=== PATIENT | female | born 1970 | race Caucasian/White ===

== ENCOUNTER → 2017-06-25 | Outpatient (CLI) | payer BC, OTHER | LOC: FIMAGING 16:53 | PROVIDERS: ATTEND Family Medicine | DX: R10.2 Pelvic and perineal pain (principal); W19.XXXA Unspecified fall, initial encounter ==

== ENCOUNTER → 2017-07-28 | Outpatient (CLI) | payer BC, OTHER | LOC: FIMAGING 08:34 | PROVIDERS: ATTEND Family Medicine | DX: Z12.31 Encounter for screening mammogram for malignant neoplasm of breast (principal) | CPT/HCPCS: G0202 ==

== ENCOUNTER → 2017-08-10 | Outpatient (CLI) | payer BC, OTHER | LOC: FIMAGING 09:13 | PROVIDERS: ATTEND Family Medicine | DX: Z12.39 Encounter for other screening for malignant neoplasm of breast (principal); N63 Unspecified lump in breast | CPT/HCPCS: G0206 ==

== ENCOUNTER 2017-09-11 15:15 | Emergency (ER) | payer OTHER, BC ==
[2017-09-11 15:30] VITALS: RESP 18
--- NOTE | 2017-09-11 17:20 | EDPHY ---
H & P Time Seen by Provider: 09/11/17 16:42 HPI/ROS: CHIEF COMPLAINT: Back pain HISTORY OF PRESENT ILLNESS: The patient is a 46-year-old female who presents emergency department with "sciatica." Patient states that she fell on her brother reports 1 month ago. She landed on her right side. She was seen by her primary care physician, Dr. Thornton and had an x-ray that was read as negative. Her symptoms slowly improved. 2 weeks ago she again fell down on the snow and again developed some right buttock discomfort. Again, her symptoms improved. Today at work she developed right buttock pain. It does not radiate down her leg. It is not midline. She has had no weakness or numbness. No incontinence of urine or stool. No fevers or chills. REVIEW OF SYSTEMS: My complete review of systems is negative except as mentioned in the HPI. Past Medical/Surgical History: Includes depression, hypothyroidism Past surgical history: Includes knee surgery, right ankle surgery, hysterectomy Social history: Patient does not smoke Smoking Status: Never smoked Physical Exam: Vitals noted GENERAL: Well-appearing, in no acute distress, alert. HEENT: Eyes normal to inspection, normal pharynx, no signs of dehydration. NECK: No thyromegaly, no lymphadenopathy, supple. RESPIRATORY: Clear to auscultation bilaterally, no rales, rhonchi or wheezing. CVS: Regular rate and rhythm, no rubs, murmurs, or gallops. ABDOMEN: Soft, nontender, nondistended, no organomegaly. BACK: Normal to inspection, no CVA tenderness. No spinal tenderness. Patient is able to stand on heels and stand on her toes. She is able to ambulate with discomfort. Pelvis: Stable. Patient has mild tenderness palpation over her right SI joint. SKIN: Normal color, no rash, warm, dry. No pallor. EXTREMITIES: No pedal edema, no calf tenderness, no Homans sign or cords, no joint swelling. NEURO/PSYCH: Alert and oriented x3, normal mood and affect, normal motor sensory exam. No obvious cranial nerve deficit. Constitutional: Initial Vital Signs Temperature (C) 36.5 C 09/11/17 15:26 Heart Rate 91 09/11/17 15:26 Respiratory Rate 18 09/11/17 15:26 Blood Pressure 141/114 H 09/11/17 15:26 O2 Sat (%) 96 09/11/17 15:26 O2 Delivery Mode Room Air Allergies/Adverse Reactions: morphine [Morphine] Allergy (Mild, Verified 09/11/17 15:31) Other-Enter Comments azithromycin [From Zithromax] Allergy (Unknown, Verified 09/11/17 15:31) Home Medications: Medication Instructions Recorded Cyclobenzaprine [Flexeril] 10 mg PO TID #11 tab 09/11/17 Hydrocodone/APAP 5/325 [[place] 1 - 2 tab PO Q4 #13 tab 09/11/17 5/325 (RX)] Synthroid 09/11/17 Zoloft 100mg (*) 09/11/17 predniSONE 20 mg PO DAILY 4 Days tab 09/11/17 Medical Decision Making ED Course/Re-evaluation: In the emergency department I discussed possible etiologies with the patient. I reviewed the imaging studies from 08/08. No acute disease was noted. I reviewed the images and reviewed Dr. Pineda report. I discussed the previous findings with the patient. At this time I do not feel she needs further imaging. Patient will be treated with pain medicine, Flexeril and a prescription of prednisone. They agree with this plan. She will follow up with Dr. Thornton. Differential Diagnosis: My differential includes but is not limited to low back pain, sciatica, disc herniation, mass, hematoma. I doubt neuro surgical emergency. - Data Points Medications Given: Discontinued Medications Hydrocodone Bitart/Acetaminophen ([place] 5/325) 1 tab PO EDNOW ONE Stop: 09/11/17 17:22 Last Admin: 09/11/17 17:42 Dose: 1 tab Cyclobenzaprine HCl (Flexeril) 10 mg PO EDNOW ONE Stop: 09/11/17 17:23 Last Admin: 09/11/17 17:43 Dose: 10 mg Departure - Departure Disposition: Home, Routine, Self-Care Clinical Impression: Sciatica Qualifiers: Laterality: right Qualified Code(s): M54.31 - Sciatica, right side Condition: Good Instructions: Sciatica (ED) Additional Instructions: Return with increasing pain, weakness, numbness, fever, or any other concerns. Referrals: Heather Thornton MD [Medical Doctor] - 5-7 days, call for appt. Stand Alone Forms: Work Excuse Prescriptions: Cyclobenzaprine [Flexeril] 10 mg PO TID #11 tab Hydrocodone/APAP 5/325 [[place] 5/325 (RX)] 1 - 2 tab PO Q4 #13 tab predniSONE 20 mg PO DAILY 4 Days tab
[2017-09-11] MEDS ORDERED: HYDROCODONE/APAP 5/325 TAB PO ONE (17:21)
[2017-09-11] MEDS ORDERED: CYCLOBENZAPRINE 10 MG TAB PO ONE (17:22)
[2017-09-11] MEDS ORDERED: predniSONE 20 MG TAB PO ONE (17:57)
[2017-09-11 18:32] VITALS: BP 157/89; PULSE 93; TEMP 98.2; O2SAT 98
== END 2017-09-11 18:31 | disposition home or self-care (01) ==
LOC: EDUNIT#
DX: M54.31 Sciatica, right side (principal)

== ENCOUNTER → 2017-10-18 | Outpatient (CLI) | payer BC, OTHER | LOC: FIMAGING 10:59 | PROVIDERS: ATTEND Family Medicine | DX: I80.9 Phlebitis and thrombophlebitis of unspecified site (principal); R52 Pain, unspecified; R60.0 Localized edema ==

== ENCOUNTER 2018-02-14 17:58 | Emergency (ER) | payer BC, OTHER ==
--- NOTE | 2018-02-14 18:33 | EDPHY ---
General - History Smoking Status: Never smoked Time Seen by Provider: 02/14/18 18:09 Narrative: CHIEF COMPLAINT: Depression, suicidal thoughts, paranoia HISTORY OF PRESENT ILLNESS: Patient presents with spouse and mother at bedside. They report the patient has been increasingly depressed over the past 10 days. She has exhibited signs of paranoia and psychosis to them at times. She has admitted that she has felt suicidal to them. She will not talk to me verbally but she will shake her head yes or no. She does shake her head yes to feeling depressed. She shakes her head yes to feeling suicidal. She will not describe any plan or intent. She is very tearful and appears very anxious and tense. Mother and spouse reports history of psychosis with psychotic break, depression and questionable schizophrenia. She also reportedly has PTSD. She has been followed by psychiatrist, whom they called today. This physician recommended that she present to the emergency department for evaluation. No other associated complaints or modifying factors. PSYCHIATRIC DIAGNOSES: PTSD, depression, paranoia, psychotic break, possible schizophrenia. Cognitive delay PRIOR PSYCHIATRIC EVALUATIONS: Two thousand eight [place] 10. Two thousand ten [facility] Psychiatrist Dr. Tamayo Therapist is Richy Argueta M1/DETAINER: Dr. Anderson at 6:20 p.m. Today REVIEW OF SYSTEMS: Ten systems reviewed and are negative unless otherwise noted in the HPI EXAMINATION General Appearance: Alert, no distress. tearful. Minimal verbal communication Head: normocephalic, atraumatic Eyes: Pupils equal and round, no conjunctival pallor or injection ENT, Mouth: Mucous membranes moist Neck: Normal inspection, supple, non-tender Respiratory: Lungs are clear to auscultation. No wheeze, rhonchi or crackles Cardiovascular: Regular rate and rhythm. No murmur Gastrointestinal: Abdomen is soft and nontender Back: non-tender, no bony abnormalities Neurological: Awake. Strength is symmetric in all 4 limbs. Tracking symmetrically with no pronator drift normal [id number]. Will not converse with me. Skin: Warm and dry, no rash no petechiae or purpura Extremities: Nontender, no pedal edema Psychiatric: Tearful with depressed mood and flat affect. Shakes her head yes to the question of suicidal ideation and depression. DIFFERENTIAL DIAGNOSES: Including but not limited to depression, suicidal ideation, dystonia, hypothyroid, mood disorder, paranoid, schizophrenia MDM: 6:30 p.m. Paranoid with increasing depression and reported thoughts of suicidal ideation. The patient acknowledges that she has felt suicidal but will not disclose her plan or intent to me. Her spouse and mother bedside report that she has had history of psychosis and psychotic breaks in the past. She has been off Zyprexa for nearly a year. She was recently changed to Rexulti 1 week ago. The patient does not admit hallucinations to the family. She is very tearful and emotional. She will not converse with me beyond shaking her head yes or no. I have completed an M1 due to fear of suicide ideation and Dr. Anderson has signed. Proceed with medical clearance and evaluation. 7:30 p.m. Patient is medically cleared for evaluation at this time. 8:30 p.m. [facility] has been notified and she is pending evaluation. 10:00 p.m. Patient resting comfortably. She remains tearful but is calm and cooperative. She still awaiting her psychiatric evaluation. 11:50 p.m. At this time the patient is still awaiting her psychiatric evaluation. She has been cooperative thus far did not need any medications. At this time, Dr. Faria will assume care of the patient. Please see his note for further care final disposition. SUPERVISION: Patient was independently examined, but I discussed the case with my secondary supervising physician Dr. Anderson ([facility]) Medical Decision Makin: Patient accepted by Dr. Delvalle [address] inpatient psychiatric hospitalization. Appropriate transfer be set up. EMTALA filled out. (Troy Faria) - Objective Vital Signs: Initial Vital Signs Temperature (C) 36.5 C 02/14/18 18:01 Heart Rate 98 02/14/18 18:01 Respiratory Rate 20 02/14/18 18:01 Blood Pressure 174/104 H 02/14/18 18:01 O2 Sat (%) 94 02/14/18 18:01 O2 Delivery Mode Room Air Allergies/Adverse Reactions: morphine [Morphine] Allergy (Mild, Verified 09/11/17 15:31) Other-Enter Comments azithromycin [From Zithromax] Allergy (Unknown, Verified 09/11/17 15:31) Home Medications: Medication Instructions Recorded Synthroid 09/11/17 Zoloft 100mg (*) 09/11/17 Brexpiprazole 02/14/18 Laboratory Results: Laboratory Results 02/14/18 19:00 02/14/18 19:00 02/14/18 02/14/18 02/14/18 19:00 19:00 19:00 WBC RBC Hgb Hct MCV MCH MCHC RDW Plt Count MPV Neut % (Auto) Lymph % (Auto) Whitley % (Auto) Eos % (Auto) Baso % (Auto) Nucleat RBC Rel Count Absolute Neuts (auto) Absolute Lymphs (auto) Absolute Monos (auto) Absolute Eos (auto) Absolute Basos (auto) Absolute Nucleated RBC Immature Gran % Immature Gran # Sodium 138 mEq/L mEq/L (135-145) Potassium 3.7 mEq/L mEq/L (3.5-5.2) Chloride 103 mEq/L mEq/L (97-110) Carbon Dioxide 21 mEq/l L mEq/l (22-31) Anion Gap 14 mEq/L mEq/L (8-16) BUN 17 mg/dL mg/dL (7-23) Creatinine 0.7 mg/dL mg/dL (0.6-1.0) Estimated GFR > 60 Glucose 95 mg/dL mg/dL (70-100) Calcium 9.4 mg/dL mg/dL (8.5-10.4) TSH 0.740 uIU/mL uIU/mL (0.465-4.680) Beta HCG, Qual NEGATIVE Urine Opiates Screen NEGATIVE (NEGATIVE) Urine Barbiturates NEGATIVE (NEGATIVE) Ur Phencyclidine Scrn NEGATIVE (NEGATIVE) Ur Amphetamine Screen NEGATIVE (NEGATIVE) U Benzodiazepines Scrn NEGATIVE (NEGATIVE) Urine Cocaine Screen NEGATIVE (NEGATIVE) U Marijuana (THC) Screen NEGATIVE (NEGATIVE) Ethyl Alcohol < 10 mg/dL mg/dL (0-10) 02/14/18 19:00 WBC 8.24 10^3/uL 10^3/uL (3.80-9.50) RBC 5.16 10^6/uL 10^6/uL (4.18-5.33) Hgb 15.2 g/dL g/dL (12.6-16.3) Hct 45.4 % % (38.0-47.0) MCV 88.0 fL fL (81.5-99.8) MCH 29.5 pg pg (27.9-34.1) MCHC 33.5 g/dL g/dL (32.4-36.7) RDW 13.0 % % (11.5-15.2) Plt Count 257 10^3/uL 10^3/uL (150-400) MPV 10.2 fL fL (8.7-11.7) Neut % (Auto) 67.7 % % (39.3-74.2) Lymph % (Auto) 24.8 % % (15.0-45.0) Whitley % (Auto) 5.7 % % (4.5-13.0) Eos % (Auto) 0.8 % % (0.6-7.6) Baso % (Auto) 0.6 % % (0.3-1.7) Nucleat RBC Rel Count 0.0 % % (0.0-0.2) Absolute Neuts (auto) 5.58 10^3/uL 10^3/uL (1.70-6.50) Absolute Lymphs (auto) 2.04 10^3/uL 10^3/uL (1.00-3.00) Absolute Monos (auto) 0.47 10^3/uL 10^3/uL (0.30-0.80) Absolute Eos (auto) 0.07 10^3/uL 10^3/uL (0.03-0.40) Absolute Basos (auto) 0.05 10^3/uL 10^3/uL (0.02-0.10) Absolute Nucleated RBC 0.00 10^3/uL 10^3/uL (0-0.01) Immature Gran % 0.4 % % (0.0-1.1) Immature Gran # 0.03 10^3/uL 10^3/uL (0.00-0.10) Sodium Potassium Chloride Carbon Dioxide Anion Gap BUN Creatinine Estimated GFR Glucose Calcium TSH Beta HCG, Qual Urine Opiates Screen Urine Barbiturates Ur Phencyclidine Scrn Ur Amphetamine Screen U Benzodiazepines Scrn Urine Cocaine Screen U Marijuana (THC) Screen Ethyl Alcohol Departure - Departure Disposition: [facility] IP Clinical Impression: Suicidal ideation, Severe major depression Condition: Fair Referrals: Alexa Villanueva MD [Primary Care Provider] - As per Instructions
[2018-02-14 19:07] LABS: PLATELET COUNT 257 10^3/uL (150-400)
[2018-02-14 23:05] VITALS: TEMP 98.4
[2018-02-15 03:33] VITALS: BP 138/78; PULSE 80; RESP 20; O2SAT 97
== END 2018-02-15 03:33 ==
DX: R45.851 Suicidal ideations (principal); F32.9 Major depressive disorder, single episode, unspecified
CPT/HCPCS: 80305; G0480

== ENCOUNTER 2018-02-15 03:45 | Inpatient (IN) | payer BC, OTHER ==
[2018-02-15] MEDS ORDERED: ACETAMINOPHEN 325 MG TAB PO PRN (04:07)
[2018-02-15] MEDS ORDERED: LORazepam 0.5 MG TAB PO PRN ×2 (04:07→13:05)
[2018-02-15] MEDS ORDERED: NICOTINE POLACRILEX 2 MG GUM B PRN (04:07)
[2018-02-15] MEDS ORDERED: MAGNESIUM HYDROXIDE 30 ML UDCUP PO PRN (04:07)
[2018-02-15] MEDS ORDERED: MAG HYDROX/AL HYDROX/SIMETH 30 ML UDCUP PO PRN (04:07)
[2018-02-15] MEDS ORDERED: OLANZapine 10 MG TAB PO PRN (04:09)
[2018-02-15] MEDS ORDERED: hydrOXYzine HCL 25 MG TAB PO PRN (13:04)
[2018-02-15] MEDS ORDERED: ALBUTEROL 60 PUFFS/8 GM MDI IH PRN (13:12)
--- NOTE | 2018-02-15 13:53 | BCON ---
[f rep st] BEHAVIORAL HEALTH CONSULTATION INTERNAL MEDICINE CONSULTATION DATE OF CONSULTATION: 02/15/2018 REFERRING PHYSICIAN: Vineet Miguel MD REASON FOR REFERRAL: Medical clearance for inpatient behavioral health stay. HISTORY OF PRESENT ILLNESS: This patient was sent to the emergency department yesterday by her psychiatrist. She arrived with her and mother who reported that she had been increasingly depressed over the past 10 days, including signs of paranoia, psychosis, and suicidality. She was evaluated by the mental health team and admitted for further psychiatric care. She complains of abdominal pain and reports that she had diarrhea yesterday. PAST MEDICAL HISTORY: 1. Mental health issues with previous psychiatric hospitalizations. 2. 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 3. Hypothyroidism. 4. Polycystic ovary syndrome. 5. Sciatica. PAST SURGICAL HISTORY: She has had a hysterectomy and a knee replacement. MEDICATIONS: Prior to admission: 1. Levothyroxine 200 mcg 6 days a week and 400 mcg on Wednesday. 2. Sertraline 200 mg p.o. daily. ALLERGIES: Morphine and azithromycin. SOCIAL HISTORY: She is . She lives with her . They have no children. 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 FAMILY HISTORY: Noncontributory. REVIEW OF SYSTEMS: She reports approximately a 6 pound weight loss over the past 2 weeks which has been involuntary. She has had a reduced appetite. She denies nausea, vomiting or constipation. She denies cough or dyspnea. She is not in pain and otherwise a 10-point review of systems is negative. PHYSICAL EXAM: VITAL SIGNS: Blood pressure is 146/76, heart rate is 91, respiratory rate is 16, oxygen saturation is 91% on room air. This was at 4 in the morning. Temperature is 36.6 degrees centigrade. Her weight is 108.9 kg for a body mass index of 42. GENERAL: This is an obese woman, dressed in a green hospital gown, sitting on the couch, accompanied by her , cooperative and intermittently in moderate distress and tearful. HEENT: Extraocular movements are intact. Pupils are equal, round, reactive to light. Mucous membranes are moist. Dentition is in good condition. She has a crowded airway, Mallampati class 4. NECK: Supple. HEART: Regular rate and rhythm with no murmurs, rubs, or gallops. LUNGS: Clear to auscultation bilaterally. ABDOMEN: Obese, soft, nontender with normoactive bowel sounds. EXTREMITIES: There is no cyanosis, clubbing, or edema. NEUROLOGIC: She is alert and oriented x3. She is slow to respond. She has emotional lability, occasionally laughing and occasionally tearful. Cranial nerves 2-12 are grossly intact. There is no focal weakness and sensation is intact to light touch. LABORATORY STUDIES: Drawn yesterday in the emergency department, CBC was entirely within normal limits. Serum chemistry revealed a slightly low carbon dioxide, but otherwise renal function and electrolytes were within normal limits. TSH was normal at 0.74. Beta hCG was negative for . Toxicology screen in the serum was negative for ethyl alcohol and the urine was negative for substances of abuse. ASSESSMENT/RECOMMENDATIONS: 1. Obesity. Might consider avoiding medications which could worsen weight gain however her psychosocial stabilization is first priority. 2. Weight loss over recent weeks, possibly due to exacerbation of her psychiatric condition. Observe for normal oral intake. Consider economic historian consult regarding ideal body weight and weight loss. 3. Risk for sleep apnea with snoring and crowded airway. Advise referral for sleep study after her discharge. 4. Question of cognitive impairment. She is slow to respond and concrete in her responses. However, she has been able to hold a job. Emotional lability might be pseudobulbar affect if there is neurologic degeneration progressing. Might consider further evaluation including brain imaging and neuropsychological testing if she does not respond as expected to antidepressants and other measures per Psychiatry. I see no medical contraindications to this patient's continued stay in the inpatient behavioral health unit or to any psychiatric medications or procedures. Thank you very much for including me in the care of this patient and please do not hesitate to contact me or the hospitalist service should there be need for further medical evaluation. /[id number]/MODL MTDD
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
[2018-02-15 14:41] LABS: CREATINE KINASE 152 IU/L (0-156)
[2018-02-15] MEDS: LORazepam 0.5 MG TAB PO SCH ×2 (16:15→20:41)
[2018-02-15] MEDS ORDERED: OLANZapine 2.5 MG TAB PO SCH ×2 (21:00)
[2018-02-16] MEDS: SERTRALINE HCL 100 MG TAB PO SCH (09:07)
[2018-02-16] MEDS: LORazepam 0.5 MG TAB PO SCH ×3 (09:07→20:47)
[2018-02-16] MEDS ORDERED: OLANZapine 5 MG TAB PO SCH (11:08)
--- NOTE | 2018-02-16 11:12 | SOAPPROG ---
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 Plan: Patient on M-1 hold Continue Zoloft 200mg Increase Olanzapine 5mg QHS, monitor for catatonic symptoms Continue Ativan 0.5mg TID Monitor mood, behavior, risk of self-harm, paranoia/AH 02/16/18 11:12 Subjective: CC: "OK" Patient unable to explain problems or symptoms leading to hospitalization. Endorses having depression, anxiety, disrupted sleep, fear of other people, and AH but unable to give further details. Denies feeling stiff or slow. Denies SI. Reports past taking Olanzapine from [facility] on /. Endorses anxiety and difficulty speaking or expressing self or thinking clearly. Objective: Vital Signs Temp Pulse Resp BP Pulse Ox 36.6 C 93 16 134/59 H 95 02/16/18 06:00 02/16/18 06:00 02/16/18 06:00 02/16/18 06:00 02/16/18 06:00 Overweight WF. Ambulatory. Speech soft few words. Some internal preoccupation. Thinking disorganized. Denies SI or HI. Endorses AH but unable to explain. Limited insight. Staff report patient slept 7.5 hours, cooperative with medications, eating meals , quiet with minimal speech, needs prompts for activities. [facility] [phone] reports patient was previously prescribed Olanzapine 10mg. - Time Spent With Patient Time Spent With Patient: 15 minutes - Pending Discharge Pending Discharge Within 24 Hours: No Pending Discharge Within 48 Hours: No ICD10 Worksheet Patient Problems: Problems Problem Status Onset Borderline intellectual functioning Acute Major depressive disorder with psychotic features Acute Hypothyroidism Acute Obese Acute
[2018-02-16] MEDS: LEVOTHYROXINE 200 MCG TAB PO SCH (11:15)
[2018-02-17] MEDS ORDERED: OLANZapine 5 MG TAB PO SCH (08:32)
[2018-02-17] MEDS: SERTRALINE HCL 100 MG TAB PO SCH (08:36)
[2018-02-17] MEDS: LORazepam 0.5 MG TAB PO SCH ×3 (08:36→19:38)
--- NOTE | 2018-02-17 08:42 | SOAPPROG ---
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 Plan: Short Term Certification 02/17/18 until patient has improved insight and thought organization Continue Zoloft 200mg Increase Olanzapine 10mg QHS Continue Ativan 0.5mg TID Monitor mood, behavior, risk of self-harm, paranoia/AH, thought organization Low carbohydrate diet 02/17/18 08:40 Subjective: CC: "OK" Patient unable to explain symptoms leading to admission. Endorses feeling depressed and anxious and having AH but unable to describe symptoms further. Denies feeling sedated or slowed by medications. Reports sleeping well and having an appetite for breakfast. Unable to explain if she would remain in treatment voluntarily. Objective: Vital Signs Temp Pulse Resp BP Pulse Ox 36.6 C 78 20 128/58 H 93 02/17/18 06:00 02/17/18 06:00 02/17/18 06:00 02/17/18 06:00 02/17/18 06:00 Alert overweight WF. Disorganized behavior and internal preoccupation. Mood ' OK.' Affect anxious, distracted. Thoughts disorganized. Denies SI or HI. Endorses AH but unable to explain in detail. Limited insight. Staff report patient slept 10 hours and cooperative with medications and meals. Isolative, quiet, talking to self, appearing anxious and preoccupied. HgbA1c 5.9; LFTs WNL; Lipids WNL; CK 152; TSH 0.7 - Time Spent With Patient Time Spent With Patient: 15 minutes - Pending Discharge Pending Discharge Within 24 Hours: No Pending Discharge Within 48 Hours: No ICD10 Worksheet Patient Problems: Problems Problem Status Onset Borderline intellectual functioning Acute Major depressive disorder with psychotic features Acute Hypothyroidism Acute Obese Acute
[2018-02-17] MEDS: LEVOTHYROXINE 200 MCG TAB PO SCH (10:56)
[2018-02-17] MEDS: ZIPRASIDONE HCL 20 MG CAP PO SCH (19:03)
--- NOTE | 2018-02-18 07:17 | CPEKG ---
Heart Rate: 79 RR Interval: 759 P-R Interval: 188 QRSD Interval: 82 QT Interval: 384 QTC Interval: 441 P Alderson: 78 QRS Alderson: 69 T Wave Alderson: 66 EKG Severity - NORMAL ECG - EKG Impression: SINUS RHYTHM Electronically Signed By: Campbell Mena 18-Feb-2018 12:46:54
[2018-02-18] MEDS: SERTRALINE HCL 100 MG TAB PO SCH (08:40)
[2018-02-18] MEDS: LORazepam 0.5 MG TAB PO SCH ×3 (08:40→21:05)
[2018-02-18] MEDS: ZIPRASIDONE HCL 20 MG CAP PO SCH ×2 (08:40→17:59)
--- NOTE | 2018-02-18 09:21 | SOAPPROG ---
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 Plan: Short Term Certification 02/17/18 until patient has improved insight and thought organization Continue Zoloft 100mg Continue Geodon 20mg BID, started 02/17/18 Continue Ativan 0.5mg TID Monitor mood, behavior, risk of self-harm, paranoia/AH, thought organization Low carbohydrate diet 02/18/18 09:17 Subjective: CC: "I'm OK" Patient has minimal speech. Endorses continued depression and anxiety but reports feeling better than prior to admission. Reports no longer hearing voices but endorses paranoia and fear 'that I did something bad.' Unable to describe inner thought or goals for treatment. Denies stiffness, tremors, or feeling sedated or slowed. Objective: Vital Signs Temp Pulse Resp BP Pulse Ox 36.6 C 78 16 130/63 H 95 02/18/18 06:00 02/18/18 06:00 02/18/18 06:00 02/18/18 06:00 02/18/18 06:00 Alert WF. Affect appears preoccupied and anxious at times. Mood 'I'm OK.' Speech soft few words. Thoughts disorganized. Endorses then denies AH. Brief paranoid and nihilistic thoughts but denies SI or HI. Limited/poor insight. EKG WNL, HR 79 QTc 441 Staff report patient slept over night, eating meals, able to attend some groups but is quiet, preoccupied, minimal speech, appears to be responding to internal stimuli. - Time Spent With Patient Time Spent With Patient: 20 minutes - Pending Discharge Pending Discharge Within 24 Hours: No Pending Discharge Within 48 Hours: No ICD10 Worksheet Patient Problems: Problems Problem Status Onset Borderline intellectual functioning Acute Major depressive disorder with psychotic features Acute Hypothyroidism Acute Obese Acute
[2018-02-18] MEDS: LEVOTHYROXINE 200 MCG TAB PO SCH (10:09)
[2018-02-19] MEDS: SERTRALINE HCL 100 MG TAB PO SCH (08:28)
[2018-02-19] MEDS: ZIPRASIDONE HCL 20 MG CAP PO SCH ×2 (08:28→17:06)
[2018-02-19] MEDS: LORazepam 0.5 MG TAB PO SCH ×3 (08:28→20:04)
[2018-02-19] MEDS: LEVOTHYROXINE 200 MCG TAB PO SCH (08:28)
--- NOTE | 2018-02-19 13:14 | SOAPPROG ---
SOAP Progress Note Assessment/Plan: Assessment: Per Dr. 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 Plan: Short Term Certification 02/17/18 until patient has improved insight and thought organization Continue Zoloft 100mg Continue Geodon 20mg BID, started 02/17/18 Continue Ativan 0.5mg TID Monitor mood, behavior, risk of self-harm, paranoia/AH, thought organization Low carbohydrate diet Plan: 02/19/18 13:10 1. Patient denies feeling sad, depressed or anxious this AM. 2. Denies any SE's from meds. 3. Still on , plan to d/c on Wednesday. 4. F/U with Dr. Tamayo on 03/04/18 Subjective: Met with patient, reviewed chart and d/w staff. Patient presents calm, pleasant , cooperative. Her speech is slow and soft-spoken. She denies any AH/VH, no thoughts about wanting to hurt herself or anyone else. She is tolerating meds without any complaints or SE's. She had dream last night that she was fired from her job and her left her, however, she knows neither one of these things is likely to happen and understands her mind is playing tricks on her by exaggerating her fears. Objective: Vital Signs Temp Pulse Resp BP Pulse Ox 36.4 C 80 20 141/65 H 94 02/19/18 06:00 02/19/18 06:00 02/19/18 06:00 02/19/18 06:00 02/19/18 06:00 MSE: Affect: Euthymic Mood: "Good" TP: Linear TC: Denies any SI/HI, no hallucinations, slight paranoia about job/ but able to put it in perspective Insight/Judgment: Fair - Time Spent With Patient Time Spent With Patient: 20" - Pending Discharge Pending Discharge Within 24 Hours: No Pending Discharge Within 48 Hours: No ICD10 Worksheet Patient Problems: Problems Problem Status Onset Borderline intellectual functioning Acute Major depressive disorder with psychotic features Acute Hypothyroidism Acute Obese Acute
[2018-02-20] MEDS: ZIPRASIDONE HCL 20 MG CAP PO SCH ×2 (08:18→17:25)
[2018-02-20] MEDS: SERTRALINE HCL 100 MG TAB PO SCH (08:18)
[2018-02-20] MEDS: LORazepam 0.5 MG TAB PO SCH ×3 (08:19→20:57)
[2018-02-20] MEDS ORDERED: LEVOTHYROXINE 200 MCG TAB PO SCH (10:00)
--- NOTE | 2018-02-20 13:04 | SOAPPROG ---
SOAP Progress Note Assessment/Plan: Assessment: Per Dr. 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 Plan: Short Term Certification 02/17/18 until patient has improved insight and thought organization Continue Zoloft 100mg Continue Geodon 20mg BID, started 02/17/18 Continue Ativan 0.5mg TID Monitor mood, behavior, risk of self-harm, paranoia/AH, thought organization Low carbohydrate diet Plan: 02/19/18 13:10 1. Patient denies feeling sad, depressed or anxious this AM. 2. Denies any SE's from meds. 3. Still on ST, plan to d/c on Wednesday. 4. F/U with Dr. Tamayo on 03/04/18 02/20/18 13:00 1. Patient says anxiety is getting better, denies SI. 2. Tolerating meds well. 3. EKG from 02/18/18 indicated NSR. 4. STC Subjective: Met with patient, reviewed chart and d/w staff. Patient is very quiet and speaks softly and slowly. She denies feeling depressed and denies any thoughts of hurting herself. She is feeling less anxious, but worries that she has "done something wrong." MD and staff reassure her that she isn't going to lose her job b/c she is in hospital. MD tells her that she can get a medical excuse from work for the time she has been hospitalized. Objective: Vital Signs Temp Pulse Resp BP Pulse Ox 36.6 C 77 17 123/66 H 93 02/20/18 06:00 02/20/18 06:00 02/20/18 06:00 02/20/18 06:00 02/20/18 06:00 MSE: Affect: Euthymic, less anxious Mood: "OK" TP: Linear TC: No SI/HI, no psychotic sxs Insight/Judgment: Fair - Time Spent With Patient Time Spent With Patient: 15" - Pending Discharge Pending Discharge Within 24 Hours: No Pending Discharge Within 48 Hours: No ICD10 Worksheet Patient Problems: Problems Problem Status Onset Borderline intellectual functioning Acute Major depressive disorder with psychotic features Acute Hypothyroidism Acute Obese Acute
[2018-02-21] MEDS: LORazepam 0.5 MG TAB PO SCH ×3 (08:25→21:02)
[2018-02-21] MEDS: LEVOTHYROXINE 200 MCG TAB PO SCH (08:25)
[2018-02-21] MEDS: ZIPRASIDONE HCL 20 MG CAP PO SCH (08:25)
[2018-02-21] MEDS: SERTRALINE HCL 100 MG TAB PO SCH (08:26)
--- NOTE | 2018-02-21 11:31 | SOAPPROG ---
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 Patient denies SI but appears disorganized with loose associations, endorses paranoia and AH, but has been calm and eating/sleeping on unit. Plan: Short Term Certification 02/17/18 until patient has improved insight and thought organization Continue Zoloft 100mg Increase Geodon 40mg BID Continue Ativan 0.5mg TID Monitor mood, behavior, risk of self-harm, paranoia/AH, thought organization Low carbohydrate diet Check AM BMP, CK 02/21/18 11:29 02/21/18 11:29 Subjective: CC "OK" Patient unable to explain events leading to hospitalization. Denies feeling hopeless but endorses paranoia and AH and feeling distracted. Denies stiffness or slowing. Denies feeling agitated or irritable. Endorses mood swings and feeling anxious. Reports sleeping well. Reports wanting to return home after discharge but unable to explain what she would do after discharge. Objective: Vital Signs Temp Pulse Resp BP Pulse Ox 36.5 C 82 16 124/61 H 95 02/21/18 06:00 02/21/18 06:00 02/21/18 06:00 02/21/18 06:00 02/21/18 06:00 Alert WF. Overweight. Appears to be responding to internal stimuli. Speech soft, few words. Mood 'OK.' Affect anxious, preoccupied. Thoughts disorganized with limited detail. Endorses paranoia and AH but unable to give detail. Denies SI or HI. Limited insight. Staff report patient slept 8 hours. Isolative, quiet, able to attend groups, appearing preoccupied and distracted. - Time Spent With Patient Time Spent With Patient: 15 minutes - Pending Discharge Pending Discharge Within 24 Hours: No Pending Discharge Within 48 Hours: No ICD10 Worksheet Patient Problems: Problems Problem Status Onset Borderline intellectual functioning Acute Major depressive disorder with psychotic features Acute Hypothyroidism Acute Obese Acute
[2018-02-21] MEDS: ZIPRASIDONE HCL 40 MG CAP PO SCH (19:33)
[2018-02-22] MEDS: ZIPRASIDONE HCL 40 MG CAP PO SCH ×2 (08:19→17:22)
[2018-02-22] MEDS: SERTRALINE HCL 100 MG TAB PO SCH (08:19)
[2018-02-22] MEDS: LORazepam 0.5 MG TAB PO SCH (08:19)
[2018-02-22] MEDS: LEVOTHYROXINE 200 MCG TAB PO SCH (09:40)
[2018-02-22 09:50] LABS: CREATINE KINASE 51 IU/L (0-156)
--- NOTE | 2018-02-22 10:59 | SOAPPROG ---
SOAP Progress Note Assessment/Plan: Assessment: Major Depressive Disorder with psychotic features versus Schizoaffective Disorder Borderline Intellectual Functioning Overweight Hypothyroidism Patient admitted for SI without plan, paranoid ideas of reference, depression/ anxiety symptoms, AH, and impaired functioning in the community. Patient denies SI, endorses paranoia and AH, appears to be responding to internal stimuli, but has been calm and eating/sleeping on unit. Patient appears somewhat more organized and able to speak full sentences and reportedly has improved ADLs on unit. Plan: Short Term Certification 02/17/18 Continue Zoloft 100mg Continue Geodon 40mg BID, started after admit, increased 02/21/18 Reduce Ativan 0.5mg BID Monitor mood, behavior, risk of self-harm, paranoia/AH, thought organization Low carbohydrate diet 02/22/18 10:59 Subjective: CC: "I'm OK" Patient endorses anxiety and sadness and AH, but unable to describe further. Denies plan to harm self or others. Endorses paranoia and later reports fearing 'something bad is happening.' Denies stiffness or sedation from medication. Reports wanting to be well for , mother, and cat. Objective: Vital Signs Temp Pulse Resp BP Pulse Ox 36.5 C 79 14 98/57 L 94 02/22/18 06:00 02/22/18 06:00 02/22/18 06:00 02/22/18 06:00 02/22/18 06:00 Laboratory Results 02/22/18 07:00 Alert WF. Reading a book briefly. Appears distracted and preoccupied. Mood 'I 'm OK" appears anxious and responding to internal stimuli. Endorses AH and paranoia 'something bad is happening.' Thoughts disorganized but able to speak full sentences. Denies SI or HI. Insight poor. BMP and CK WNL. Staff report patient at times responding to internal stimuli, briefly tearful at times, other times smiling; patient now having better ADLs and was able to shower and change clothes. Reported to staff hearing AH of 'yelling.' Mostly calm and attending groups. - Time Spent With Patient Time Spent With Patient: 15 minutes - Pending Discharge Pending Discharge Within 24 Hours: No Pending Discharge Within 48 Hours: No ICD10 Worksheet Patient Problems: Problems Problem Status Onset Borderline intellectual functioning Acute Major depressive disorder with psychotic features Acute Hypothyroidism Acute Obese Acute
[2018-02-22] MEDS ORDERED: LORazepam 0.5 MG TAB PO SCH (21:00)
--- NOTE | 2018-02-23 08:39 | SOAPPROG ---
SOAP Progress Note Assessment/Plan: Assessment: Major Depressive Disorder with psychotic features versus Schizoaffective Disorder Borderline Intellectual Functioning Overweight Hypothyroidism Patient admitted for SI without plan, paranoid ideas of reference, depression/ anxiety symptoms, AH, and impaired functioning in the community. Patient is much more verbal and organized today, reports possible remission of AH/paranoia; continues to appear distracted and preoccupied at times. Plan: Short Term Certification 02/17/18 Continue Zoloft 100mg Continue Geodon 40mg BID, started after admit, increased 02/21/18 Reduce Ativan 0.5mg HS Monitor mood, behavior, risk of self-harm, paranoia/AH, thought organization Low carbohydrate diet Possible discharge tomorrow if continuing to improve and if and mother can provide daily support, medication monitoring, help with ADLs 02/23/18 08:41 Subjective: CC: "Better" Patient reports this AM feeling improved. Reports sleeping well. Reports prior to admission and up until yesterday having AH of derogatory statements and paranoia that 'something bad was happening.' Reports feeling more hopeful today and denies suicidal thoughts. Reports having improved concentration and feeling less sad and overwhelmed. Denies stiffness, sedation, or tremors from medication. Reports goal is to return home with . Objective: Vital Signs Temp Pulse Resp BP Pulse Ox 36.6 C 76 14 98/58 L 95 02/23/18 06:00 02/23/18 06:00 02/23/18 06:00 02/23/18 06:00 02/23/18 06:00 Laboratory Results 02/22/18 07:00 overweight WF, ambulatory, limited eye contact. Appears anxious and distracted and preoccupied at times but brief reactive smiling. Thoughts more organized than previous but limited detail. Denies AH or paranoia this AM but reports derogatory AH yesterday and anxiety/paranoia yesterday. Mood 'better.' Denies SI or HI. Insight limited. Staff report patient yesterday had unstable affect (anxious and dysphoric at times, other times briefly smiling), appeared to be responding to internal stimuli and reporting derogatory AH. Cooperative with staff, mostly calm, able to shower independently, eating meals, attended some groups. - Time Spent With Patient Time Spent With Patient: 20 minutes - Pending Discharge Pending Discharge Within 24 Hours: Yes Pending Discharge Date: 02/24/18 Pending Discharge Time: 11:00 ICD10 Worksheet Patient Problems: Problems Problem Status Onset Borderline intellectual functioning Acute Major depressive disorder with psychotic features Acute Hypothyroidism Acute Obese Acute
[2018-02-23] MEDS: ZIPRASIDONE HCL 40 MG CAP PO SCH ×2 (08:41→17:25)
[2018-02-23] MEDS: SERTRALINE HCL 100 MG TAB PO SCH (08:41)
[2018-02-23] MEDS: LEVOTHYROXINE 200 MCG TAB PO SCH (09:55)
[2018-02-23] MEDS ORDERED: LORazepam 0.5 MG TAB PO SCH (21:00)
[2018-02-24 06:26] VITALS: TEMP 97.3
[2018-02-24] MEDS: LEVOTHYROXINE 200 MCG TAB PO SCH (10:34)
[2018-02-24] MEDS: SERTRALINE HCL 100 MG TAB PO SCH (10:34)
[2018-02-24] MEDS: ZIPRASIDONE HCL 40 MG CAP PO SCH (10:34)
--- NOTE | 2018-02-24 11:12 | BDS ---
[f rep st] BEHAVIORAL HEALTH DISCHARGE SUMMARY IDENTIFICATION: This is a 47-year-old white female who lives with her and a cat. 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 She is an outpatient client of Dr. Haider Tamayo, a psychiatrist here in [place]. REASON FOR ADMISSION: Please see the initial psychiatric evaluation from February 15, 2018. The patient had a decline in functioning, missing work, trouble sleeping, anxiety, depression, paranoia, strange ideas of reference regarding things on the Internet and had disorganized thinking and behavior. The patient apparently had a history of 2 psychiatric hospitalizations in the past. The last was about 8 years ago. She had previously been treated with a combination of an antidepressant and antipsychotic. Over the past 6-8 months, she had only been taking Zoloft 100 mg daily. The patient is also on Synthroid for hypothyroidism and occasionally uses Albuterol MDI for asthma. HOSPITAL COURSE: The patient was admitted on an M1 hold for grave disability and due to concern that she was a danger to herself. Apparently, the patient had been disorganized, anxious, depressed, had trouble functioning at home, trouble working, had made statements about suicide, but had denied a plan and had not had any self-injurious behaviors. She denied violent thoughts. She reported auditory hallucinations. She had been having paranoid ideas of reference regarding someone trying to harm her or something strange happening on the Internet. The patient initially presented as an overweight white female who was undertalkative and appearing anxious and sad. She was internally preoccupied, distracted, had trouble speaking full sentences, appeared anxious and depressed. The patient was initially given Zyprexa as she had previously responded to this medication in the past. However, due to the risk of metabolic syndrome, this was switched to Geodon after discussion with Dr. Tamayo. She eventually was taking 40 mg of Geodon twice a day with food. She had a marked improvement. She became less depressed, less preoccupied, less distracted, less anxious. She reported improvement in mood. She had improvement in thought organization and had more coherent organized communication. She reported remission of auditory hallucinations and remission of paranoia. The patient's mother and visited several times on the unit. The patient's reported that the patient was markedly improved and closer to her baseline. He reported that he would monitor her medication compliance after discharge and assist her in getting follow-up treatment. On the unit, the patient was initially isolative, anxious, and preoccupied. Later , she became more social and spent more time in the milieu, was able to attend groups. She was eating well and sleeping well prior to discharge. The patient was initially on lorazepam 0.5 mg t.i.d. due to concern that there may be a catatonic component to her mental illness. This was tapered down to 0.5 at bedtime. The patient, prior to discharge, was able to complete a safety plan and identify her strengths and coping skills and supports that she could use if she was having a difficult time. She did not require restraints or seclusion. The patient was continued on her Synthroid for hypothyroidism and only used her Albuterol inhaler once. CONDITION ON DISCHARGE: She is an alert and overweight white female in no acute distress. She is pleasant, cooperative. She has good eye contact. Her speech is regular rate and rhythm. Her thoughts are organized but brief. She denies any thoughts to hurt herself or others. She describes her mood as "pretty good." Her affect is euthymic and pleasant. She denies paranoia or hallucinations. Her memory is fair. Her insight is fair. Her judgment is appropriate. PROCEDURES: The patient had an electrocardiogram on February 18, 2018. This was within normal limits with a heart rate of 90 and a QTc interval of 441 milliseconds. CONSULTS: The patient was seen for baseline physical exam on February 15, 2018, by Dr. Vincent. LABS: Patient had a sodium 141, potassium 4.5, creatinine 0.9, glucose 106. Hemoglobin A1c 5.9, AST 24, ALT 40, creatine kinase 51, albumin 3.7, triglycerides 166, LDL 100, HDL 41. TSH 0.7. Serum beta HCG was negative. Urine drug screen was negative. Alcohol level was negative. White blood cell count 8.2, hemoglobin 15.2, platelet count 257. NICOTINE USE DISORDER SCREENING.: The patient does not smoke cigarettes regularly. ALCOHOL USE DISORDER SCREENING: Patient denies alcohol use. METABOLIC SCREENING: The patient is overweight and at risk for metabolic syndrome. She was counseled about the risks of Geodon causing tardive dyskinesia and metabolic syndrome. She was counseled to eat a low sugar, low- carbohydrate diet and to exercise daily. The patient had a baseline hemoglobin A1c and lipid panel that were in the normal range. ADVANCED DIRECTIVE: Patient does not have an advance directive. Her next of kin is her . DISCHARGE DIAGNOSES: Major depressive disorder, recurrent, severe, with psychotic features. Borderline intellectual functioning. Overweight. Hypothyroidism. History of asthma. Rule out Schizoaffective Disorder. DISCHARGE MEDICATIONS: Zoloft 100 mg by mouth daily, Geodon 40 mg by mouth twice a day with food, Lorazepam 0.5 mg p.o. at bedtime p.r.n. for insomnia, albuterol 2 puffs q.4 hours p.r.n. for asthma symptoms, Synthroid 200 mcg daily 6 days a week and 400 mcg daily once a week on Sundays. The patient was given a prescription for 30 days of sertraline and Geodon. She was given a prescription for 10 tablets of the lorazepam 0.5 mg. DISPOSITION: The patient is leaving the unit with her mother and her who will monitor her medication compliance and assist her in getting follow up treatment. FOLLOWUP: Followup treatment is with Belkis Washington, a psychiatrist here in [place]. The patient also has a primary care provider. LEGAL STATUS: The patient was admitted on M1 hold and then placed on short- term certification for grave disability due to disorganized thinking. This will be terminated at discharge. The patient will be a voluntary patient. ALLERGIES: The patient has allergies to morphine and azithromycin. It appears that she may have had adverse drug reaction to Abilify and Rexulti in the past. /[id number]/MODL MTDD
[2018-02-24 13:54] VITALS: BP 130/71; PULSE 101; RESP 12; O2SAT 96
== END 2018-02-24 17:00 | disposition home or self-care (01) | DRG 885 ==
LOC: BBEH 03:45
PROVIDERS: ADMIT Psychiatry & Neurology Psychiatry; ATTEND Psychiatry & Neurology Psychiatry
DX: F33.3 Major depressive disorder, recurrent, severe with psychotic symptoms (principal); E66.3 Overweight; E03.9 Hypothyroidism, unspecified; J45.909 Unspecified asthma, uncomplicated

== ENCOUNTER → 2018-08-25 | Outpatient (CLI) | payer BC | LOC: FIMAGING 08:57 | PROVIDERS: ATTEND Family Medicine | DX: Z12.31 Encounter for screening mammogram for malignant neoplasm of breast (principal) ==

== ENCOUNTER → 2018-11-03 | Outpatient (CLI) | payer BC | LOC: FIMAGING 11:32 | PROVIDERS: ATTEND Family Medicine | DX: M17.11 Unilateral primary osteoarthritis, right knee (principal) ==